=== PATIENT | male | born 1960 | race African-American/Black ===

== ENCOUNTER 2017-03-26 22:27 | Observation (INO) | payer MEDICARE, MEDICAID ==
--- NOTE | 2017-03-26 23:29 | RAD ---
RADIOGRAPH CHEST 1 VIEW: 03/26/17 HISTORY: 56-year-old male with dyspnea. FINDINGS: There are no air space densities, pulmonary edema, pneumothorax, or cardiomegaly. The lateral costop hrenic angles are sharp. IMPRESSION: No acute cardiopulmonary findings. melania [] POS: [facility]
[2017-03-26 23:43] LABS: #Eosinphils 0.5 thou/uL (0.0-0.7); #Lymphocytes 2.9 thou/uL (1.20-3.40); #Monocytes 0.7 thou/uL (0.11-0.59); #Neutrophils 6.4 thou/uL (1.40-6.50); %Basophils 0.3 % (0.0-1.0); %Eosinophils 4.5 % (0.0-10.0); %Lymphocytes 27.9 % (21.0-51.0); %Monocytes 6.5 % (0.0-10.0); Hematocrit 39.1 % (42.0-52.0); Mean Platelet Volume 6.2 fL (7.4-10.4); Red Blood Cell (RBC) Count 4.66 mill/uL (4.70-6.10); White Blood Cell (WBC) Count 10.5 thou/uL (4.8-10.8)
[2017-03-26 23:58] LABS: ALT (SGPT) 9 U/L (8-55); AST (SGOT) 13 U/L (5-34); Acetaminophen Less than 6.0 mcg/mL (10.0-30.0); Alkaline Phosphatase 80 U/L (40-150); Anion Gap 13 mmol/L (10-20); BUN (Urea Nitrogen) 10 mg/dL (8.4-25.7); Bilirubin, Total 0.4 mg/dL (0.2-1.2); CK (CPK) 87 U/L (30-200); Calc. Creatinine Clearance 0 mL/min (70-130); Calcium 9.3 mg/dL (7.8-10.44); Carbon Dioxide 26 mmol/L (22-29); Chloride 109 mmol/L (98-107); Estimated GFR-MDRD 86; Globulin 3.5 g/dL (2.4-3.5); Protein, Total 7.7 g/dL (6.0-8.3); Salicylate Less than 8.0 mg/dL (15.0-30.0)
[2017-03-27 01:15] LABS: Bilirubin Negative (Negative); Blood, Urine Negative (Negative); Glucose, Urine (Dipstick) Negative (Negative); Ketone, Urine Negative (Negative); Nitrite Negative (Negative); Protein, Urine (Dipstick) Negative (Neg-Trace)
[2017-03-27 01:25] LABS: Amphetamine Not Detected (NotDetected); Methadone Not Detected (NotDetected); Methamphetamine Not Detected (NotDetected)
[2017-03-27] MEDS ORDERED: methylPREDNISolone Sod Succ/PF 125 MG/2 ML VIAL ONE (01:54)
[2017-03-27] MEDS ORDERED: cloNIDine 0.1 MG TAB ONE (01:54)
--- NOTE | 2017-03-27 06:12 | PDOC.EVN ---
Event Note - Event Note Event Note: [id number] 1. Auditory hallucinations 2. htn UNCONTROLLED 3. hpl 4. Dyspnea + Wheezing plan: see orders
[2017-03-27] MEDS ORDERED: hydrALAZINE 20 MG/ML VIAL SLOW IVP PRN (06:16)
[2017-03-27] MEDS ORDERED: hydrALAZINE 20 MG/ML VIAL ONE (06:29)
[2017-03-27 06:50] LABS: Troponin I Less than 0.010 ng/mL (< 0.028)
[2017-03-27] MEDS ORDERED: Nitroglycerin 0.4 MG TAB (25 Tab Bottle) ONE (07:21)
[2017-03-27 10:48] LABS: Troponin I Less than 0.010 ng/mL (< 0.028)
[2017-03-27] MEDS ORDERED: Ondansetron ODT 4 MG TAB SL PRN (13:23)
[2017-03-27] MEDS ORDERED: Acetaminophen 325 MG TAB PO PRN (13:23)
[2017-03-27] MEDS ORDERED: Ondansetron HCl/PF 4 MG/2 ML Vial IVP PRN (13:23)
[2017-03-27 13:38] LABS: Troponin I Less than 0.010 ng/mL (< 0.028)
[2017-03-27] MEDS: Aspirin 325 MG TAB PO SCH (15:20)
[2017-03-27] MEDS: NIFEdipine XL 60 MG TAB PO SCH (15:20)
[2017-03-27] MEDS: Carvedilol 6.25 MG TAB PO SCH ×2 (15:20→20:35)
[2017-03-27] MEDS: Nitroglycerin 2% Ointment 1 INCH/1 GM Packet TOP SCH ×2 (15:21→20:36)
--- NOTE | 2017-03-27 16:10 | HP ---
DATE OF ADMISSION: 03/27/2017 CHIEF COMPLAINT: Auditory hallucinations. HISTORY OF PRESENT ILLNESS: Patient is a 56-year-old male with past medical history of schizophrenia, paranoia, anxiety, depression, hypertension, hyperlipidemia who came to the ER complaining of hallucinations. The patient states since yesterday he started having auditory hallucinations and he could not able to breath. He is having some chest tightness also, mild in intensity. Denies any dizziness, denies any lightheadedness. Denies any nausea, denies any vomiting, denies any diarrhea. Denies any fever, denies any chills, denies any cough, denies sputum production. PAST MEDICAL HISTORY: As per HPI. PAST SURGICAL HISTORY: wrist surgery. SOCIAL HISTORY: Used to smoke, not smoking anymore. Used to drink alcohol; last alcohol was 2 years back. ALLERGIES: HALDOL. MEDICATIONS: Zyprexa. REVIEW OF SYSTEMS: Constitutional: Denies any fever, denies any chills. Eyes : Denies any vision problems. Ears: Denies any hearing loss. Neck: Denies any neck pain. Cardiovascular: Denies any chest pain. Respiratory: Positive for dyspnea. Positive for wheezing. Cranial Nerve System: Denies syncope. Psychiatric: Positive for auditory hallucinations. Gastrointestinal: Denies nausea, vomiting. Genitourinary: Denies dysuria. All other review of systems are reviewed and are negative. PHYSICAL EXAMINATION: CONSTITUTIONAL/VITAL SIGNS: At the time of H&P performed, blood pressure is 170 /110, afebrile, respiration rate 18. GENERAL: This patient appears comfortable. HEENT: Anterior nares patent. Nose normal. Ears normal. Teeth intact. Tongue is moist. NECK: Supple. No JVD. CARDIOVASCULAR: S1, S2 present. Regular rate and rhythm, no murmurs, no rubs, no gallops. RESPIRATORY: No wheezing, no rhonchi, normal effort, but per nurse practitioner earlier the patient was having some wheezing. GASTROINTESTINAL: Abdomen is soft, nontender, no guarding, no organomegaly, no masses felt. MUSCULOSKELETAL: No edema. INTEGUMENTARY: No rashes seen. PSYCHIATRIC: Positive for hallucinations per patient, otherwise mood is calm. LABORATORY DATA: At the time of H&P performed, white count 10.5, hemoglobin 13 , and platelet count is 228. D-dimer less than 0.27. BMP shows sodium 144, potassium 3.7, chloride 109, CO2 26, BUN of 10, creatinine 1.08. X-RAY FINDINGS: Chest x-ray, no obvious infiltrates seen. ASSESSMENT AND PLAN: The patient is a 56-year-old male: 1. Dyspnea plus chest tightness. Plan to check EKG and serial cardiac enzymes. Plan to monitor the patient closely. 2. Hypertension, uncontrolled. Monitor blood pressure. We will go ahead and continue blood pressure medications. We will start the patient on p.r.n. hydralazine and p.r.n. clonidine also. 3. Schizophrenia plus auditory hallucinations. Plan to consult psych once medically cleared. Plan to place a 24-hour sitter. 4. History of anxiety and depression. P.r.n. anxiolytics. Case was discussed in detail with the patient. EJ
[2017-03-27 16:13] VITALS: BMI 38.3
[2017-03-28] MEDS: Nitroglycerin 2% Ointment 1 INCH/1 GM Packet TOP SCH ×2 (05:54→12:54)
[2017-03-28] MEDS: NIFEdipine XL 60 MG TAB PO SCH (08:21)
[2017-03-28] MEDS: Carvedilol 6.25 MG TAB PO SCH (08:21)
[2017-03-28] MEDS: Aspirin 325 MG TAB PO SCH (08:21)
[2017-03-28 16:12] VITALS: BP 152/66; TEMP 98.1
--- NOTE | 2017-03-28 16:23 | DIS ---
DATE OF ADMISSION: 03/27/2017 DATE OF DISCHARGE: 03/28/2017 PRIMARY CARE PHYSICIAN: Listed as none. DISCHARGE DIAGNOSES: 1. Schizophrenia. 2. Auditory hallucinations. 3. Hypertension. 4. Obesity. CONSULTATIONS: 1. [facility] seen on 03/28/2017 and cleared for discharge home. HOSPITAL COURSE: Mr. Choe is a 56-year-old gentleman with a history of schizophrenia, paranoid type, anxiety, and depression, who presented to the emergency department with hearing voices. He subseque ntly also complained of chest pain, was worked up in the ER. There he was found to have negative biomarkers, blood pressure initially elevated on presentation, an d was admitted for further treatment and clearance for MR evaluation. HOSPITAL COURSE: The patient was seen and admitted by Dr. Fonseca. He was started on Procardia and Coreg, with p.r.n. hydralazine. Overnight 03/27/2017 to 03/28/2017, blood pressure normalized, with that the auditory hallucinations vanished, and the patient was continued on Zyprexa. MR came to e valuate the patient today and cleared for discharge home with outpatient followup. Thus, the patient was sent out. He had no funds for medicine. So, case management was consulted to make arrangements for him to get his meds. PHYSICAL EXAMINATION: The patient was seen and examined on the day of discharge. Discharge plan and disposition were discussed with the patient. The patient remained at the bedside. DISCHARGE MEDICATIONS: 1. Procardia XL or nifedipine 60 mg p.o. daily. 2. Olanzapine 30 mg p.o. at bedtime. 3. Coreg 6.25 mg p.o. b.i.d. Prescription for the Coreg and the Pro[facility] FOLLOWUP APPOINTMENTS 1. MR per their schedule. PRIMARY CARE PHYSICIAN: If he has one within a week. DISCHARGE CONDITION: Stable. DISPOSITION: Being discharged to home. The patient is going to walk. DISCHARGE ACTIVITY: As tolerated. DISCHARGE DIET: Heart healthy recommended.
== END 2017-03-28 16:19 | disposition home or self-care (01) ==
LOC: ERS 22:27 → ERHOLD 03-27 08:02 → 2SW 03-27 12:48
PROVIDERS: ADMIT Internal Medicine; ATTEND Internal Medicine
DX: F20.0 Paranoid schizophrenia (principal); I10 Essential (primary) hypertension; R07.89 Other chest pain; F41.9 Anxiety disorder, unspecified; F32.9 Major depressive disorder, single episode, unspecified; E78.5 Hyperlipidemia, unspecified; E66.9 Obesity, unspecified; Z68.38 Body mass index [BMI] 38.0-38.9, adult; Z87.891 Personal history of nicotine dependence; Z79.899 Other long term (current) drug therapy; Z88.8 Allergy status to other drugs, medicaments and biological substances; Z98.890 Other specified postprocedural states
CPT/HCPCS: 71010; 80061; 80306; 80307; 81003; 82550; 83880; 84484 ×2; 85379; 93005; 94640; 96374; 96375; 96376; 99285; G0378; 36415; 80053; 84443; 85025; A4216; J0360; J2930; J7620

== ENCOUNTER 2017-04-29 21:44 | Emergency (ER) | payer MEDICARE, MEDICAID ==
[2017-04-29 22:33] LABS: #Basophils 0.1 thou/uL (0.0-0.2); #Eosinphils 0.6 thou/uL (0.0-0.7); #Lymphocytes 2.2 thou/uL (1.20-3.40); #Monocytes 0.8 thou/uL (0.11-0.59); #Neutrophils 5.9 thou/uL (1.40-6.50); %Basophils 1.3 % (0.0-1.0); %Eosinophils 6.2 % (0.0-10.0); %Monocytes 8.7 % (0.0-10.0); %Neutrophils 60.9 % (42.0-75.0); Mean Corpuscular HGB CONC 33.3 g/dL (32.0-36.0); Mean Corpuscular Hemoglobin 27.8 pg (27.0-31.0); Mean Corpuscular Volume 83.5 fl (80.0-94.0); Platelet Count 227 thou/uL (130-400); RBC Distribution Width 11.7 % (11.5-14.5); Red Blood Cell (RBC) Count 4.66 mill/uL (4.70-6.10); White Blood Cell (WBC) Count 9.7 thou/uL (4.8-10.8)
[2017-04-29] MEDS ORDERED: Water For Inject, Bacteriostat 30 ML ONE (22:33)
[2017-04-29] MEDS ORDERED: methylPREDNISolone Sod Succ/PF 125 MG/2 ML VIAL ONE (22:33)
[2017-04-29] MEDS ORDERED: Magnesium Sulfate 2 GM/100 ML BAG ONE (22:35)
--- NOTE | 2017-04-29 22:50 | RAD ---
PORTABLE CHEST: 04/29/17 HISTORY: Dyspnea. The lungs are clear. The heart and mediastinum appear unremarkable. IMPRESSION: No acute finding. POS: [facility]
[2017-04-29 22:55] LABS: ALT (SGPT) 8 U/L (8-55); AST (SGOT) 9 U/L (5-34); Albumin 4.1 g/dL (3.5-5.0); Alkaline Phosphatase 75 U/L (40-150); Anion Gap 15 mmol/L (10-20); BUN (Urea Nitrogen) 7 mg/dL (8.4-25.7); Bilirubin, Total 0.3 mg/dL (0.2-1.2); CK (CPK) 65 U/L (30-200); Calc. Creatinine Clearance 0 mL/min (70-130); Calcium 9.3 mg/dL (7.8-10.44); Carbon Dioxide 22 mmol/L (22-29); Chloride 107 mmol/L (98-107); Estimated GFR-MDRD Greater than 90; Globulin 3.4 g/dL (2.4-3.5); Glucose 97 mg/dL (70-105); Potassium 4.1 mmol/L (3.5-5.1); Protein, Total 7.5 g/dL (6.0-8.3); Sodium 140 mmol/L (136-145)
[2017-04-29 23:01] LABS: CKMB 0.8 ng/mL (0-6.6)
== END 2017-04-30 00:10 | disposition home or self-care (01) ==
LOC: ERS 21:44
DX: R06.00 Dyspnea, unspecified (principal); E78.5 Hyperlipidemia, unspecified; I10 Essential (primary) hypertension; F41.9 Anxiety disorder, unspecified; F32.9 Major depressive disorder, single episode, unspecified; F20.0 Paranoid schizophrenia; Z87.891 Personal history of nicotine dependence; Z79.899 Other long term (current) drug therapy
CPT/HCPCS: 36415; 71045; 80053; 82550; 82553; 83880; 84484; 85025; 93005; 96365; 96375; J2930; J3475